=== PATIENT | female | born 1975 | race Asian ===

== ENCOUNTER 2019-07-11 13:09 | Emergency (ER) | payer OTHER ==
[~2019-07-11] VITALS: Ht 165.1 cm; Wt 63.0 kg
[2019-07-11] MEDS ORDERED: ONDANSETRON ODT 4 MG PO ONE (13:20)
--- NOTE | 2019-07-11 13:20 | NUR ---
LATE ENTRY FOR 1320: PT PRESENTS TO ED WITH C/O RIGHT FLANK PAIN RADIATING TO RIGHT LOWER ABD WITH N/V SINCE 0900 THIS AM. PT HAS HX KIDNEY STONES. PT DENIES CHANCE OF . PT A&O, RESPS EVEN AND UNLABORED. PT ACTIVELY VOMITING ON ARRIVAL TO ED, ZOFRAN ODT ORDERED AND ADMINISTERED PER PROTOCOL. EDMD SAHM NOTIFIED. PT ATTACHED TO BP AND SPO2 MONITORS. CALL LIGHT IN REACH. WARM BLANKET PROVIDED. AWAITING MD AND ORDERS AT THIS TIME.
[2019-07-11] MEDS ORDERED: ONDANSETRON ODT 4 MG ONE (13:22)
[2019-07-11] MEDS ORDERED: SODIUM CHLORIDE 0.9% 1,000ML IVBOLUS ONE ×2 (13:30→15:30)
[2019-07-11] MEDS ORDERED: KETOROLAC 30 MG/1 ML IVPush ONE (13:30)
[2019-07-11] MEDS ORDERED: SODIUM CHLORIDE FLUSH 10ML SYR IVF ONE (13:30)
[2019-07-11] MEDS ORDERED: ONDANSETRON 2MG/ML, 2ML IVPush ONE (13:30)
--- NOTE | 2019-07-11 13:43 | NUR ---
TASK RN CORINNA AT BEDSIDE TO ATTEMPT US PIV PT HAS POOR VASCULATURE AND STATES "I'VE NEEDED AN ULTRASOUND IN THE PAST." PT STATES SHE HAS NO URGE TO VOID, REQUESTS IV FLUIDS BEFORE ATTEMPTING TO PROVIDE URINE. PT A&O, RESPS EVEN AND UNLABORED, NADN. BP AND SPO2 MONITORS IN PLACE.
[2019-07-11] MEDS ORDERED: KETOROLAC 30 MG/1 ML ONE (13:48)
[2019-07-11] MEDS ORDERED: PLEASE ENTER ALLERGIES MC SCH (14:00)
[2019-07-11 14:10] LABS: BASOPHILS # (AUTO) 0.03 x10^3/uL (0-0.1); BASOPHILS % (AUTO) 0 % (0-1); EOSINOPHILS # (AUTO) 0.03 x10^3/uL (0-0.4); EOSINOPHILS % (AUTO) 1 % (1-7); LYMPHOCYTES % (AUTO) 13 % (22-44); MD NO; MEAN CORPUSCULAR HGB CONC 32.9 g/dL (32.4-35.8); MEAN CORPUSCULAR VOLUME 91.4 fL (80-100); MEAN PLATELET VOLUME 8.5 fL (7.4-10.4); MONOCYTES # (AUTO) 0.27 x10^3/uL (0.2-0.8); MONOCYTES % (AUTO) 4 % (2-9); NEUTROPHILS # (AUTO) 5.55 x10^3/uL (1.8-6.8); NEUTROPHILS % (AUTO) 82 % (42-75); PLATELET COUNT 180 x10^3/uL (130-400); RED BLOOD COUNT 4.78 x10^6/uL (3.82-5.3); RED CELL DISTRIBUTION WIDTH 13.9 % (9.6-15.2)
[2019-07-11] MEDS ORDERED: MORPHINE SULFATE 4 MG/ML, 1ML ONE ×2 (14:15→17:01)
[2019-07-11 14:17] LABS: ALANINE AMINOTRANSFERASE 16 U/L (12-78); ALBUMIN 4.3 g/dL (3.4-5.0); ANION GAP 16 mmol/L (5-15); CALCIUM 9.2 mg/dL (8.5-10.1); CHLORIDE 102 mmol/L (98-107); CREATININE 1.02 mg/dL (0.55-1.02)
[2019-07-11] MEDS: MORPHINE SULFATE 4 MG/ML, 1ML IVPush PRN ×2 (14:18→17:03)
--- NOTE | 2019-07-11 14:20 | NUR ---
Note undone in EDM - 07/11/19 at 1429 by NELY LATE ENTRY D/T PATIENT CARE: PT PRESENTS TO ED WITH C/O RIGHT FLANK PAIN RADIATING TO RIGHT LOWER ABD WITH N/V SINCE 0900 THIS AM. PT HAS HX KIDNEY STONES. PT DENIES CHANCE OF . PT A&O, RESPS EVEN AND UNLABORED. PT ACTIVELY VOMITING ON ARRIVAL TO ED, JHONNY ODT ORDERED AND ADMINISTERED PER PROTOCOL. [facility]. PT ATTACHED TO BP AND SPO2 MONITORS. CALL LIGHT IN REACH. WARM BLANKET PROVIDED. AWAITING MD AND ORDERS AT THIS TIME.
--- NOTE | 2019-07-11 14:20 | NUR ---
PT REPORTING SEVERE FLANK AND RIGHT LOWER ABD PAIN, LEVEL 7/10. MD CLARK NOTIFIED. MORPHINE ORDERED, PT REQUESTS DOSE BE ONLY 2MG TO START. PT MEDICATED PER EMAR. BP AND SPO2 MONITORS IN PLACE. IVF INFUSING RAPIDLY. IV FLUSHES EASILY, NO S/SX INFILTRATION AT THIS TIME.
[2019-07-11 14:21] LABS: ALKALINE PHOSPHATASE 41 U/L (45-117); BILIRUBIN,TOTAL 0.5 mg/dL (0.2-1.0); TOTAL PROTEIN 8.4 g/dL (6.4-8.2)
--- NOTE | 2019-07-11 14:25 | NUR ---
PT STILL DENYING URGE TO VOID. PT INSTRUCTED TO PROVIDE URINE SAMPLE WHEN ABLE, SUPPLIES AT BEDSIDE.
--- NOTE | 2019-07-11 14:27 | NUR ---
PT TO CT AT THIS TIME, PT A&O, RESPS EVEN AND UNLABORED, SATTING 99% ON ROOM AIR AT TIME OF DEPARTURE. PT STATES PAIN IS SUBSIDING ALREADY S/P MORPHINE.
--- NOTE | 2019-07-11 15:16 | NUR ---
PT REPORTS PAIN IS AT A TOLERABLE LEVEL NOW, DECLINES ADDITIONAL MORPHINE. PT A&O, RESPS EVEN AND UNLABORED, PT MAINTIANING SPO2 98-100% ON ROOM AIR. PT AWARE OF NEED FOR URINE SAMPLE. PT REQUESTS SECOND LITER NS, EDMD SAHM NOTIFIED. REPORT GIVEN TO LAURITA OLVERA AT BEDSIDE, LAURITA OLVERA TO ASSUME CARE.
[2019-07-11 15:44] VITALS: BP 126/88
--- NOTE | 2019-07-11 15:46 | NUR ---
pt resting comfortably in bed with eyes closed. 2nd liter of ns started. pt aware of need for ua.
[2019-07-11 16:26] LABS: MICROSCOPIC NOT IND
[2019-07-11] MEDS ORDERED: POTASSIUM CHLORIDE 20 MEQ TAB.ER.PRT PO ONE (17:00)
[2019-07-11] MEDS ORDERED: POTASSIUM CHLORIDE 20 MEQ TAB.ER.PRT ONE (17:07)
== END 2019-07-11 17:34 | disposition home or self-care (01) ==
LOC: ED 15:14
DX: N20.1 Calculus of ureter (principal); N13.30 Unspecified hydronephrosis; R11.2 Nausea with vomiting, unspecified; E87.6 Hypokalemia; E86.0 Dehydration
CPT/HCPCS: 36415; 74176; 80053; 81003; 84703; 85025; 96361; 96374; 96375; 96376; 99284; J1885; J2270; J7030; Q0162